=== PATIENT | female | born 1990 | race African-American/Black ===

== ENCOUNTER 2022-03-17 20:21 | Emergency (ER) | payer OTHER, SELFPAY ==
[2022-03-17 20:34] VITALS: BP 141/71; PULSE 116; RESP 18; TEMP 36.7; O2SAT 100
[2022-03-17] MEDS: SODIUM CHLORIDE 0.9% IV 1,000 ML 999 ML IV CONT (21:03)
[2022-03-17] MEDS: METOCLOPRAMIDE HCL INJ 10 MG/2 ML VIAL IV PUSH (21:04)
--- NOTE | 2022-03-17 21:06 | ED.GENADULT ---
HPI - General Adult General Chief complaint: Nausea/Vomiting/Diarrhea Stated complaint: nausea/vomiting 6weeks pg Time Seen by Provider: 03/17/22 20:46 History of Present Illness HPI narrative: Patient is a 23-year-old female who presents the emergency department with chief complaint of nausea and vomiting. Patient reports she is approximately 6 weeks and is an insulin-dependent type 1 diabetic. Patient reports that in her previous 2 pregnancies she has not had any problems reports this when she has not been able to keep any fluids down. The patient denies fever denies abdominal pain denies vaginal bleeding or vaginal discharge. Patient reports she is scheduled to see a OB later this month. Related Data Home Medications Medication Instructions Recorded Confirmed Humalog U-100 Insulin 03/17/22 Allergies Allergy/AdvReac Type Severity Reaction Status Date / Time No Known Allergies Allergy Verified 03/17/22 20:38 Review of Systems Review of Systems: A 10 system review of systems was completed on the patient and is negative except for what is stated in the HPI. Nursing and ancillary documentation was reviewed. Constitutional: Comments: Exam Narrative: GENERAL: Well-appearing, well-nourished, and in no acute distress. HEAD: Normocephalic, atraumatic. EYES: PERRLA and EOMI. ENT: Nares clear, no rhinorrhea or epistaxis. Mucous membranes moist. NECK: Supple. CHEST: Clear to auscultation. No respiratory distress. HEART: Regular rate and rhythm. No murmur heard. Normal peripheral pulses. ABDOMEN: Soft, nontender, nondistended, normal active bowel sounds. EXTREMITIES: Normal range of motion. No edema. SKIN: Warm, dry, no rash. NEURO: No focal deficits. Alert and oriented x3. PSYCH: Normal mood and affect. Course Vital Signs Vital signs: Vital Signs Temperature 36.7 C 03/17/22 20:34 Pulse Rate 116 H 03/17/22 20:34 Respiratory Rate 18 03/17/22 20:34 Blood Pressure 141/71 H 03/17/22 20:34 Pulse Oximetry 100 03/17/22 20:34 Oxygen Delivery Room Air 03/17/22 20:34 Temperature 36.7 C 03/17/22 20:34 Pulse Rate 78 03/17/22 22:28 Respiratory Rate 18 03/17/22 22:28 Blood Pressure 126/76 03/17/22 22:28 Pulse Oximetry 99 03/17/22 22:28 Oxygen Delivery Room Air 03/17/22 20:34 Medical Decision Making Vital Signs Vital Signs: Vital Signs Temperature 36.7 C 03/17/22 20:34 Pulse Rate 116 H 03/17/22 20:34 Respiratory Rate 18 03/17/22 20:34 Blood Pressure 141/71 H 03/17/22 20:34 Pulse Oximetry 100 03/17/22 20:34 Oxygen Delivery Room Air 03/17/22 20:34 Temperature 36.7 C 03/17/22 20:34 Pulse Rate 78 03/17/22 22:28 Respiratory Rate 18 03/17/22 22:28 Blood Pressure 126/76 03/17/22 22:28 Pulse Oximetry 99 03/17/22 22:28 Oxygen Delivery Room Air 03/17/22 20:34 Lab Data Result diagrams: 03/17/22 21:11 03/17/22 21:11 Labs: Lab Results 03/17/22 03/17/22 03/17/22 Range/Units 21:11 21:11 21:11 WBC 14.1 H (4.5-10.0) K/mm3 RBC 4.08 L (4.2-5.4) M/mm3 Hgb 11.9 L (12.0-15.0) g/dL Hct 37.2 (37.0-47.0) % MCV 91.2 (80-100) fl MCH 29.2 (26-34) pg MCHC 32.0 (32-36) g/dl RDW 12.3 (11.5-14.5) % Plt Count 441 H (150-375) k/mm3 MPV 9.9 (7.4-10.4) fl Immature Gran % (Auto) 0.5 (0-0.5) % Neut % (Auto) 80.2 H (45.5-73.1) % Lymph % (Auto) 14.7 L (18.3-44.2) % [place] % (Auto) 4.1 (2.6-8.5) % Eos % (Auto) 0.1 (0-4.4) % Baso % (Auto) 0.4 (0.2-1.2) % Lymph # (Auto) 2.08 (0.9-3.2) K/mm3 [place] # (Auto) 0.6 (0.1-0.6) K/mm3 Eos # (Auto) 0.0 (0-0.3) K/mm3 Baso # (Auto) 0.1 (0.0-0.1) K/mm3 Abs Immat Gran (auto) 0.07 H (0.00-0.031) K/mm3 Absolute Neuts (auto) 11.4 H (1.3-6.7) K/mm3 Absolute Nucleated RBC 0.0 (0.0-0.012) K/mm3 Nucleated RBC % 0.0 (0.0-0.2) % Sodium 131 L (137-145) mmo
[2022-03-17 21:18] LABS: Basophils Absolute Auto 0.1 K/mm3 (0.0-0.1); Basophils Percent Auto 0.4 % (0.2-1.2); Eosinophils Percent Auto 0.1 % (0-4.4); Hematocrit 37.2 % (37.0-47.0); Hemoglobin 11.9 g/dL (12.0-15.0); Immature Granulocyte Absolute 0.07 K/mm3 (0.00-0.031); Immature Granulocyte Percent A 0.5 % (0-0.5); Lymphocytes Absolute Auto 2.08 K/mm3 (0.9-3.2); Lymphocytes Percent Auto 14.7 % (18.3-44.2); Mean Corpuscular Hemoglobin 29.2 pg (26-34); Mean Corpuscular Volume 91.2 fl (80-100); Mean Platelet Volume 9.9 fl (7.4-10.4); Monocytes Absolute Auto 0.6 K/mm3 (0.1-0.6); Monocytes Percent Auto 4.1 % (2.6-8.5); Neutrophils Absolute Auto 11.4 K/mm3 (1.3-6.7); Neutrophils Percent Auto 80.2 % (45.5-73.1); Platelet Count Result 441 k/mm3 (150-375); Red Blood Count 4.08 M/mm3 (4.2-5.4); Red Cell Distribution Width 12.3 % (11.5-14.5); White Blood Count 14.1 K/mm3 (4.5-10.0)
[2022-03-17 21:29] LABS: Alanine Aminotransferase 17 U/L (6-35); Albumin Level 4.5 g/dL (3.5-5.1); Alkaline Phosphatase 82 U/L (38-126); Anion Gap 9 mmol/L (8-16); Aspartate Amino Transferase 25 U/L (14-36); Bilirubin,Total 0.8 mg/dL (0.2-1.3); Blood Urea Nitrogen 8 mg/dL (7-17); Carbon Dioxide 21 mmol/L (22-30); Chloride 101 mmol/L (98-107); Estimated CRCL calculation 88 ml/min; Estimated Glomerular Filt Rate > 60; Glucose 224 mg/dL (65-110); Lipase 40 U/L (23-300); Potassium 4.3 mmol/L (3.4-5.0); Sodium 131 mmol/L (137-145)
[2022-03-17 22:28] VITALS: BP 126/76; PULSE 78; RESP 18; O2SAT 99
[2022-03-17 22:51] LABS: Appearance Urine Clear (Clear); Bilirubin Urine Negative (Negative); Blood Urine Negative (Negative); Color Urine Yellow (Yellow); Glucose Urine UA 2+ mg/dL (Negative); Ketones Urine 3+ mg/dL (Negative); Leukocyte Esterase Ur Negative LEU/UL (Negative); Nitrate Urine Positive (Negative); Protein Urine 2+ mg/dL (Negative); Specific Grav Ur >= 1.030 (1.001-1.035); pH Urine 5.5 (5.0-9.0)
[2022-03-17 23:03] LABS: Bacteria Urine Trace /hpf; Mucus Urine Rare /lpf; RBC Urine 0-2 /hpf (0-2); Squamous Epithelial Cell Urine Few /hpf (Few); WBC Urine 0-3 /hpf
[2022-03-17 23:23] LABS: Add Urine Microscopic? YES
[2022-03-17 23:28] VITALS: BP 123/77; PULSE 74; RESP 15; O2SAT 99
== END 2022-03-17 23:29 | disposition home or self-care (01) ==
PROVIDERS: Emergency Provider Emergency Medicine
DX: O21.9 Vomiting of pregnancy, unspecified (principal); O24.011 Pre-existing type 1 diabetes mellitus, in pregnancy, first trimester; E10.9 Type 1 diabetes mellitus without complications; Z3A.01 Less than 8 weeks gestation of pregnancy
CPT/HCPCS: 36415; 80053; 81001; 83690; 84702; 85025; 96361; 96374; 99284; J2765; J7030